=== PATIENT | female | born 1960 | race Caucasian/White ===

== ENCOUNTER 2017-02-18 11:42 | Emergency (ER) | payer OTHER ==
[2017-02-18] MEDS ORDERED: Sodium Chloride 0.9% 1000 ML 1,000 ML IV STA (12:08)
[2017-02-18] MEDS ORDERED: Vistaril 50 MG/ML IM ONE ×2 (12:08→12:30)
--- NOTE | 2017-02-18 12:22 | ERPHSYRPT ---
- History of Present Illness Time Seen by Provider: 02/18/17 11:53 Source: patient, family () Patient Subjective Stated Complaint: pt arrived per pov for dizziness, nausea, ear pain sudden onset, no vomiting, dizzy when moves around, pt is sitting in bed lauren soni the news Triage Nursing Assessment: pt alert, resp easy, skin w/d,no edema noted, moves all ext well Physician History: CC: dizzy Hx: 57 y/o patient went to the doctor with her , ran some errands, was going to [employer] to sign some papers. She had feeling of dizziness and nausea. Some neck pain but no headache. Tingle in left arm sometimes. No fall or injury. No jarett spinning. She came to have her sugar checked as she is a diabetic. No vomiting. No fever or chills. Timing/Duration: today Allergies/Adverse Reactions: Penicillins Allergy (Mild, Verified 02/18/17 12:06) Hives Home Medications: Alprazolam 1 mg [Xanax 1 mg] 1 mg PO TID 09/10/14 [History] Glyburide 5 mg [Micronase 5 MG] 10 mg PO BID 09/10/14 [History] Hydrocodone/APAP 5/325 [[place] 5/325 mg] 1 tab PO QID 09/10/14 [History] Insulin Lispro [Humalog] 10 units SQ ACHS 09/10/14 [History] Metformin HCl 500 mg [Glucophage 500 MG] 1,000 mg PO BID 09/10/14 [History ] Aspirin 81 gm Chew [Baby Aspirin 81 mg Chew] 81 mg PO DAILY 09/13/14 [ History] Metoprolol Tartrate 25 mg [Lopressor 25MG Tab] 25 mg PO BID 09/13/14 [ History] Prasugrel HCl [Effient] 10 mg PO DAILY 09/13/14 [History] Ramipril 5 mg [Altace 5 MG] 5 mg PO DAILY 09/13/14 [History] Hx Tetanus, Diphtheria Vaccination/Date Given: Yes Hx Influenza Vaccination/Date Given: Yes Hx Pneumococcal Vaccination/Date Given: Yes Immunizations Up to Date: Yes - Review of Systems Constitutional: Malaise, No Fever, No Chills Eyes: No Symptoms Ears, Nose, & Throat: No Symptoms Respiratory: No Cough Cardiac: No Chest Pain Abdominal/Gastrointestinal: No Abdominal Pain Musculoskeletal: Neck Pain, No Back Pain Skin: No Rash Neurological: Dizziness, No Focal Weakness, No Headache All Other Systems: Reviewed and Negative - Past Medical History Pertinent Past Medical History: Yes Neurological History: No Pertinent History ENT History: No Pertinent History Cardiac History: Coronary Artery Disease, Hypertension Respiratory History: No Pertinent History Endocrine Medical History: Diabetes Type II Musculoskeletal History: Other GI Medical History: No Pertinent History History: No Pertinent History Psycho-Social History: Anxiety, Depression Female Reproductive Disorders: No Pertinent History Other Medical History: SCIATIC NERVE PAIN - Past Surgical History Past Surgical History: Yes Neuro Surgical History: No Pertinent History Cardiac: Cardiac Stent Respiratory: No Pertinent History Gastrointestinal: Hernia Repair Musculoskeletal: No Pertinent History Female Surgical History: Section, Hysterectomy - Social History Smoking Status: Never smoker Exposure to second hand smoke: Yes Drug Use: none Patient Lives Alone: No - Female History Hx Last Menstrual Period: post - Nursing Vital Signs Nursing Vital Signs: Initial Vital Signs Temperature 97.5 F Temperature Source Oral Pulse Rate 84 Respiratory Rate 16 Blood Pressure [Right Arm] 126/64 Pain Intensity 6 - Physical Exam General Appearance: alert Eye Exam: PERRL/EOMI, other (no nystagmus) Ears, Nose, Throat Exam: normal ENT inspection, moist mucous membranes Neck Exam: normal inspection, supple Respiratory Exam: normal breath sounds, lungs clear Cardiovascular Exam: regular rate/rhythm Gastrointestinal/Abdomen Exam: soft, No tenderness, No distention Back Exam: normal inspection, normal range of motion Extremity Exam: normal inspection, normal range of motion Neurologic Exam: alert, oriented x 3, cooperative, 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 tested, sensation nml, No motor deficits Skin Exam: warm, dry, No rash SpO2 Interpretation: normal SpO2: 99 Oxygen Delivery: Room Air - Course Nursing assessment & vital signs reviewed: Yes EKG Interpreted by Me: RATE (63), Sinus Rhythm, NORMAL AXIS, NORMAL INTERVALS ( [id number]), NORMAL QRS, NORMAL ST-T Ordered Tests: Active Orders 24 hr Category Date Time Status Accucheck STAT Care 02/18/17 13:23 Active EKG-ER Only STAT Care 02/18/17 12:08 Active IV Insertion STAT Care 02/18/17 12:08 Active Orthostatic Vital Signs STAT Care 02/18/17 12:08 Active 1800 Calorie ADA Diet 02/18/17 Lunch Active CBC W DIFF Stat Lab 02/18/17 12:18 Completed CMP Stat Lab 02/18/17 12:18 Completed UA W/ MICROSCOPIC Stat Lab 02/18/17 12:30 Completed Medication Summary Discontinued Medications Generic Name Dose Route Start Last Admin Trade Name Freq PRN Reason Stop Dose Admin Hydroxyzine HCl 50 mg 02/18/17 12:08 02/18/17 12:34 Vistaril 50 Mg/Ml IM 02/18/17 12:09 50 mg STAT ONE Administration Hydroxyzine HCl Confirm 02/18/17 12:30 Vistaril 50 Mg/Ml Administered 02/18/17 12:31 Dose 50 mg IM .STK-MED ONE Sodium Chloride 1,000 mls @ 999 mls/hr 02/18/17 12:08 02/18/17 12:34 Sodium Chloride 0.9% 1000 Ml IV 02/18/17 13:08 999 mls/hr .Q1H1M STA Administration Sodium Chloride Confirm 02/18/17 12:30 Sodium Chloride 0.9% 1000 Ml Administered 02/18/17 12:31 Dose 1,000 mls @ ud .ROUTE .STK-MED ONE Lab/Rad Data: Laboratory Result Diagrams 02/18/17 12:18 02/18/17 12:18 Laboratory Results 02/18/17 02/18/17 02/18/17 Range/Units 12:30 12:18 12:18 WBC 8.9 (4.0-10.5) K/mm3 RBC 5.33 (4.1-5.4) M/mm3 Hgb 14.6 (12.0-16.0) gm/dl Hct 45.7 (35-47) % MCV 85.7 (78-100) fl MCH 27.4 (26-32) pg MCHC 31.9 L (32-36) g/dl RDW 14.1 H (11.5-14.0) % Plt Count 238 (150-450) K/mm3 MPV 11.1 H (6-9.5) fl Gran % 52.6 (36.0-66.0) % Lymphocytes % 37.1 (24.0-44.0) % Monocytes % 6.0 (0.0-12.0) % Eosinophils % 4.2 (0.00-5.0) % Basophils % 0.1 (0.0-0.4) % Basophils # 0.01 (0-0.4) Sodium 148 H (136-145) mEq/L Potassium 4.1 (3.5-5.1) mEq/L Chloride 109 H (98-107) mEq/L Carbon Dioxide 25.5 (21-32) mEq/L Anion Gap 17.9 H (5-15) MEQ/L BUN 11 (9-20) mg/dL Creatinine 0.77 (0.55-1.30) mg/dl Estimated GFR > 60 ML/MIN Glucose 58 L (70-110) MG/DL Calcium 9.3 (8.5-10.1) mg/dL Total Bilirubin 0.5 (0.2-1.0) mg/dL AST 19 (15-37) U/L ALT 19 (12-78) U/L Alkaline Phosphatase 96 (46-116) U/L Serum Total Protein 8.3 H (6.4-8.2) gm/dL Albumin 4.3 (3.4-5.0) g/dL Ur Collection Type VOID Urine Color YELLOW (YELLOW) Urine Appearance CLEAR (CLEAR) Urine pH 5.0 (5-6) Ur Specific [place] 1.020 (1.005-1.025) Urine Protein NEGATIVE (Negative) Urine Glucose (UA) NEGATIVE (NEGATIVE) mg/dL Urine Ketones NEGATIVE (NEGATIVE) Urine Nitrite NEGATIVE (NEGATIVE) Urine Bilirubin NEGATIVE (NEGATIVE) Urine Urobilinogen 0.2 (0-1) mg/dL Urine WBC (Auto) TRACE (NEGATIVE) Urine RBC (Auto) NEGATIVE (0-5) [place]/ul Urine Microscopic RBC 0-2 (0-2) /HPF Urine Microscopic WBC 0-2 (0-5) /HPF Ur Epithelial Cells FEW (FEW) /HPF Urine Bacteria RARE (NEGATIVE) /HPF Urine Mucus SLIGHT (NEGATIVE) /HPF Specimen Received 02/22/17 1230 - Progress Progress Note: 02/18/17 13:51 She is stable. Sugar low. She ate meal tray. Glc better. Orthostatics better. Will release with instructions. Counseled pt/family regarding: diagnosis, need for follow-up - Departure Time of Disposition: 13:51 Departure Disposition: Home Clinical Impression: Dizziness, Hypoglycemia Condition: Stable Critical Care Time: No Referrals: LEWSI NOVOA [Primary Care Provider] - Instructions: Vertigo Additional Instructions: Eat regular meals. Watch your sugar. No driving tonite. Follow up with Dr Novoa.
[2017-02-18 12:24] LABS: BASOPHIL % 0.1 % (0.0-0.4); Eosinophil % 4.2 % (0.00-5.0); Granulocytes % 52.6 % (36.0-66.0); Lymphocytes % 37.1 % (24.0-44.0); Mean Cell Volume 85.7 fl (78-100); Mean Corpuscular Hemoglobin 27.4 pg (26-32); Mean Platelet Volume 11.1 fl (6-9.5); Platelet Count 238 K/mm3 (150-450); Red Blood Count 5.33 M/mm3 (4.1-5.4); Red Cell Distribution Width 14.1 % (11.5-14.0); White Blood Count 8.9 K/mm3 (4.0-10.5)
[2017-02-18] MEDS ORDERED: Sodium Chloride 0.9% 1000 ML 1,000 ML ONE (12:30)
[2017-02-18 12:44] LABS: Collection Type VOID
[2017-02-18 12:45] LABS: ALBUMIN 4.3 g/dL (3.4-5.0); ALKALINE PHOSPHATASE 96 U/L (46-116); ANION GAP 17.9 MEQ/L (5-15); BILIRUBIN,TOTAL 0.5 mg/dL (0.2-1.0); BLOOD UREA NITROGEN 11 mg/dL (9-20); CHLORIDE 109 mEq/L (98-107); Carbon Dioxide 25.5 mEq/L (21-32); Glucose 58 MG/DL (70-110); Potassium 4.1 mEq/L (3.5-5.1); SGOT/AST 19 U/L (15-37); SGPT/ALT 19 U/L (12-78); SODIUM 148 mEq/L (136-145); Total Protein 8.3 gm/dL (6.4-8.2)
[2017-02-18 12:45] LABS: COMPLETE URINE MICROSCOPIC? YES
[2017-02-18 13:02] LABS: Bacteria RARE /HPF (NEGATIVE); Epithelial Cells FEW /HPF (FEW); Mucus SLIGHT /HPF (NEGATIVE); WBC 0-2 /HPF (0-5)
[2017-02-18 13:59] VITALS: BP 125/58; PULSE 67; O2SAT 98
== END 2017-02-18 14:05 | disposition home or self-care (01) ==
LOC: ED 11:42
DX: R42 Dizziness and giddiness (principal); H92.09 Otalgia, unspecified ear; R11.0 Nausea; E11.649 Type 2 diabetes mellitus with hypoglycemia without coma; Z79.84 Long term (current) use of oral hypoglycemic drugs; Z79.4 Long term (current) use of insulin; Z79.899 Other long term (current) drug therapy
CPT/HCPCS: 36000; 36415; 80053; 81000; 82962; 85025; 93005; 96360; 96372; 99284; J3410

== ENCOUNTER 2017-03-28 20:14 | Emergency (ER) | payer OTHER ==
[2017-03-28] MEDS ORDERED: Norflex 60 MG/2 ML IM ONE (20:26)
[2017-03-28 20:27] VITALS: BP 149/86; PULSE 80; O2SAT 97
[2017-03-28] MEDS ORDERED: Norflex 60 MG/2 ML ONE (20:49)
--- NOTE | 2017-03-28 21:18 | ERPHSYRPT ---
- History of Present Illness Time Seen by Provider: 03/28/17 20:16 Source: patient Patient Subjective Stated Complaint: pt is co left arm burning for 3 hours no chest pain Triage Nursing Assessment: pt is awake and alert and able to answer questions Physician History: CC: left arm burning hx: 57 y/o patient of Dr Novoa. She was playing on her phone this afternoon and at about 5PM she noted burning in her left arm. She has hx of spinal stenosis and sees Dr Montague. She is scheduled to start a new medication soon. No injury. No weakness. No chest pain. This is not similar to her prior heart condition. She is diabetic. Pain not worse with movement of the neck or arm. Pain is in upper arm in discreet segment and described as a burning sensation. Timing/Duration: today (5PM) Severity: moderate Allergies/Adverse Reactions: Penicillins Allergy (Mild, Verified 03/28/17 20:31) Hives Home Medications: Alprazolam 1 mg [Xanax 1 mg] 1 mg PO TID 09/10/14 [History] Glyburide 5 mg [Micronase 5 MG] 10 mg PO BID 09/10/14 [History] Hydrocodone/APAP 5/325 [[place] 5/325 mg] 1 tab PO QID 09/10/14 [History] Insulin Lispro [Humalog] 10 units SQ ACHS 09/10/14 [History] Metformin HCl 500 mg [Glucophage 500 MG] 1,000 mg PO BID 09/10/14 [History ] Aspirin 81 gm Chew [Baby Aspirin 81 mg Chew] 81 mg PO DAILY 09/13/14 [ History] Metoprolol Tartrate 25 mg [Lopressor 25MG Tab] 25 mg PO BID 09/13/14 [ History] Ramipril 5 mg [Altace 5 MG] 5 mg PO DAILY 09/13/14 [History] Atorvastatin Calcium [Lipitor] 0 mg DAILY 03/28/17 [History] Hx Tetanus, Diphtheria Vaccination/Date Given: Yes Hx Influenza Vaccination/Date Given: Yes Hx Pneumococcal Vaccination/Date Given: Yes - Review of Systems Constitutional: No Fever, No Chills Eyes: No Symptoms Ears, Nose, & Throat: No Symptoms Respiratory: No Cough Cardiac: No Chest Pain, No Edema, No Palpitations, No Syncope Abdominal/Gastrointestinal: No Abdominal Pain, No Nausea, No Vomiting Genitourinary Symptoms: No Symptoms Musculoskeletal: Neck Pain (chronic), No Back Pain, No Injury Neurological: Other (burning sensation in left arm), No Focal Weakness, No Parasthesia All Other Systems: Reviewed and Negative - Past Medical History Pertinent Past Medical History: Yes Neurological History: No Pertinent History ENT History: No Pertinent History Cardiac History: Coronary Artery Disease, Hypertension Respiratory History: No Pertinent History Endocrine Medical History: Diabetes Type II Musculoskeletal History: Other GI Medical History: No Pertinent History History: No Pertinent History Psycho-Social History: Anxiety, Depression Female Reproductive Disorders: No Pertinent History Other Medical History: SCIATIC NERVE PAIN. Cervical stenosis - Past Surgical History Past Surgical History: Yes Neuro Surgical History: No Pertinent History Cardiac: Cardiac Stent Respiratory: No Pertinent History Gastrointestinal: Hernia Repair Musculoskeletal: No Pertinent History Female Surgical History: Section, Hysterectomy - Social History Smoking Status: Never smoker Exposure to second hand smoke: Yes Drug Use: none Patient Lives Alone: No (, lives in a tiny house with and grand- daughter) - Female History Hx Last Menstrual Period: na - Nursing Vital Signs Nursing Vital Signs: Initial Vital Signs Temperature 98 F Temperature Source Oral Pulse Rate 80 Respiratory Rate 16 Blood Pressure [Right Arm] 149/86 Pain Intensity 4 - Physical Exam General Appearance: alert, other (pleasant lady) Eye Exam: PERRL/EOMI Ears, Nose, Throat Exam: normal ENT inspection, moist mucous membranes Neck Exam: normal inspection, non-tender, supple Respiratory Exam: normal breath sounds, lungs clear Cardiovascular Exam: regular rate/rhythm Gastrointestinal/Abdomen Exam: soft, No tenderness, No distention Extremity Exam: normal inspection, normal range of motion Neurologic Exam: alert, oriented x 3, 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, 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, sensation nml, No motor deficits Skin Exam: warm, dry, No rash SpO2 Interpretation: normal SpO2: 97 Oxygen Delivery: Room Air - Course Nursing assessment & vital signs reviewed: Yes EKG Interpreted by Me: RATE (64), Sinus Rhythm, NORMAL AXIS, NORMAL INTERVALS ( QTc 422), NORMAL QRS, NORMAL ST-T Ordered Tests: Active Orders 24 hr Category Date Time Status ACCUCHECK [Accucheck] STAT Care 03/28/17 21:56 Active EKG-ER Only STAT Care 03/28/17 20:23 Active CERVICAL SPINE MINIMUM 4 VIEWS Stat Exams 03/28/17 20:25 Taken Medication Summary Discontinued Medications Generic Name Dose Route Start Last Admin Trade Name Justin PRN Reason Stop Dose Admin Orphenadrine Citrate 60 mg 03/28/17 20:26 03/28/17 21:15 Norflex 60 Mg/2 Ml IM 03/28/17 20:27 60 mg STAT ONE Administration Orphenadrine Citrate Confirm 03/28/17 20:49 Norflex 60 Mg/2 Ml Administered 03/28/17 20:50 Dose 60 mg .ROUTE .STK-MED ONE - Progress Progress Note: 03/28/17 21:18 She has normal eKG and no chest pain to suggest cardiac etiology. This burning is likely related to her cervical stenosis. She plans follow up with Dr Montague. 03/28/17 22:02 Cervical spine xray: [email or web address] 9:41 PM 03/28/2017: No comps. Agree multilevel DDD further detailed MRI 01/08/16. Negative fx/ subluxation including dens. She feels better. She was medicated. Nothing to suggest ACS. She plans follow up with Dr Montague. She has norco at home for pain. Declines muscle relaxers as she has to care for . Advised no driving tonite. Counseled pt/family regarding: diagnosis, need for follow-up, rad results - Departure Time of Disposition: 22:03 Departure Disposition: Home Clinical Impression: Neuropraxia of left upper extremity, Cervical spinal stenosis Condition: Stable Critical Care Time: No Referrals: LEWIS NOVOA [Primary Care Provider] - TONY MONTAGUE I [NON-STAFF PHY W/O PRIVILEGES] - Instructions: Neck Pain Additional Instructions: No driving tonite. Take your medications as already prescribed. Follow up with Dr Montague this week. Return for problems or concerns.
--- NOTE | 2017-03-29 08:36 | XRAY ---
Indication: Left arm burning sensation. Spinal stenosis. Comparison: None 6 projections of the cervical spine demonstrates normal alignment with mild multilevel degenerative changes including mild bilateral C4-C5 foraminal narrowing. No acute fracture, subluxation, or prevertebral soft tissue swelling. Scattered bilateral carotid calcifications. Impression: Nonacute cervical spine with chronic features.
== END 2017-03-28 22:28 | disposition home or self-care (01) ==
LOC: ED 20:14
DX: S44.92XA Injury of unspecified nerve at shoulder and upper arm level, left arm, initial encounter (principal); M48.02 Spinal stenosis, cervical region; M79.622 Pain in left upper arm; M50.90 Cervical disc disorder, unspecified, unspecified cervical region; E11.9 Type 2 diabetes mellitus without complications; Z79.4 Long term (current) use of insulin; I10 Essential (primary) hypertension; I25.10 Atherosclerotic heart disease of native coronary artery without angina pectoris; F41.8 Other specified anxiety disorders; Z79.899 Other long term (current) drug therapy
CPT/HCPCS: 72050; 82962; 96372; 99284; J2360

== ENCOUNTER 2017-05-02 23:00 | Emergency (ER) | payer OTHER ==
[2017-05-02] MEDS ORDERED: Sodium Chloride 0.9% 1000 ML 1,000 ML IV SCH (23:45)
[2017-05-02] MEDS ORDERED: Zofran 4 MG/2 ML VIAL IV ONE (23:54)
[2017-05-02] MEDS ORDERED: GI COCKTAIL 60ML (Belladonn/Phenobarb/Lidoc PO ONE (23:54)
[2017-05-02] MEDS ORDERED: PROTONIX 40 MG IV IV ONE (23:54)
[2017-05-02] MEDS ORDERED: Nitrostat 0.4 MG (ED) SL ONE (23:57)
[2017-05-02] MEDS ORDERED: BABY ASPIRIN 81 MG CHEW PO ONE (23:57)
--- NOTE | 2017-05-03 00:07 | ERPHSYRPT ---
- History of Present Illness Time Seen by Provider: 05/02/17 23:50 Historian: patient Exam Limitations: clinical condition Patient Subjective Stated Complaint: Pt states she has had burning in the upper abdomen for about 1 week. She saw Josemanuel CAR TRACER for it and had a ct of abdomen that was negative. She was prescribed prilosec. She states the pain/burning only happens at night and she belches a lot. Triage Nursing Assessment: Pt alert and oriented x3. skin pink warm and dry. afebrile. abdomen soft and tender with palpation. bowel sounds present x4 Physician History: PATIENT COMPLAINS OF EPIGASTRIC PAIN DISCOMFORT ASSOCIATED WITH REFLUX INTO CHEST. HAS BURNING DISCOMFORT IN CHEST. DENIES DYSPNEA, DIAPHORESIS, OR PALPITATIONS. DENIES NAUSEA, EMESIS OR DIARRHEA. Timing/Duration: week(s) Activities at Onset: none Quality: burning Location: substernal, epigastric Chest Pain Radiation: no radiation Severity of Pain-Max: moderate Severity of Pain-Current: moderate Modifying Factors: Improves With: eating Associated Symptoms: denies symptoms Prior Chest Pain/Cardiac Workup: cardiac cath Nitro Today/Relief: 0.4 mg x 1 Aspirin Treatment Today: 81 mg x 4 Allergies/Adverse Reactions: Penicillins Allergy (Mild, Verified 05/02/17 23:13) Hives Home Medications: Alprazolam 1 mg [Xanax 1 mg] 1 mg PO TID PRN 09/10/14 [History] Glyburide 5 mg [Micronase 5 MG] 10 mg PO BID 09/10/14 [History] Insulin Lispro [Humalog] 10 units SQ DAILY 09/10/14 [History] Metformin HCl 500 mg [Glucophage 500 MG] 1,000 mg PO BID 09/10/14 [History ] Aspirin 81 gm Chew [Baby Aspirin 81 mg Chew] 81 mg PO DAILY 09/13/14 [ History] Metoprolol Tartrate 25 mg [Lopressor 25MG Tab] 12.5 mg PO BID 09/13/14 [ History] Ramipril 5 mg [Altace 5 MG] 5 mg PO DAILY 09/13/14 [History] Atorvastatin Calcium [Lipitor] 10 mg PO DAILY 03/28/17 [History] Omeprazole 20 MG [Prilosec 20 mg] 20 mg PO DAILY 05/02/17 [History] Hx Tetanus, Diphtheria Vaccination/Date Given: Yes Hx Influenza Vaccination/Date Given: Yes Hx Pneumococcal Vaccination/Date Given: Yes - Review of Systems Constitutional: No Fever, No Chills Eyes: No Symptoms Ears, Nose, & Throat: No Symptoms Respiratory: No Symptoms, No Cough, No Dyspnea Cardiac: No Chest Pain, No Edema, No Syncope Abdominal/Gastrointestinal: Abdominal Pain, No Nausea, No Vomiting, No Diarrhea Genitourinary Symptoms: No Symptoms, No Dysuria Musculoskeletal: No Symptoms, No Back Pain, No Neck Pain Skin: No Symptoms, No Rash Neurological: No Symptoms, No Dizziness, No Focal Weakness, No Sensory Changes Psychological: No Symptoms Endocrine: No Symptoms All Other Systems: Reviewed and Negative - Past Medical History Pertinent Past Medical History: Yes Neurological History: No Pertinent History ENT History: No Pertinent History Cardiac History: Coronary Artery Disease, Hypertension Respiratory History: No Pertinent History Endocrine Medical History: Diabetes Type II Musculoskeletal History: Other GI Medical History: No Pertinent History History: No Pertinent History Psycho-Social History: Anxiety, Depression Female Reproductive Disorders: No Pertinent History Other Medical History: SCIATIC NERVE PAIN. Cervical stenosis - Past Surgical History Past Surgical History: Yes Neuro Surgical History: No Pertinent History Cardiac: Cardiac Stent Respiratory: No Pertinent History Gastrointestinal: Hernia Repair Musculoskeletal: No Pertinent History Female Surgical History: Section, Hysterectomy Other Surgical History: x3 - Social History Smoking Status: Never smoker Exposure to second hand smoke: Yes Drug Use: none Patient Lives Alone: No - Nursing Vital Signs Nursing Vital Signs: Initial Vital Signs Temperature 97.8 F Temperature Source Oral Pulse Rate 68 Respiratory Rate 16 Blood Pressure [] 98/52 Pain Intensity 8 - Physical Exam General Appearance: no apparent distress, alert Eye Exam: PERRL/EOMI, eyes nml inspection Ears, Nose, Throat Exam: normal ENT inspection, moist mucous membranes Neck Exam: normal inspection, non-tender, supple, full range of motion Respiratory Exam: normal breath sounds, lungs clear, No respiratory distress Cardiovascular Exam: regular rate/rhythm, normal heart sounds Gastrointestinal/Abdomen Exam: soft, normal bowel sounds, No tenderness ( MINIMAL EPIGASTRIC TENDERNESS), No mass Back Exam: normal inspection, No CVA tenderness, No vertebral tenderness Extremity Exam: normal inspection, normal range of motion Neurologic Exam: alert, oriented x 3, cooperative, normal mood/affect, sensation nml, No motor deficits Skin Exam: normal color, warm, dry SpO2 Interpretation: normal SpO2: 97 Oxygen Delivery: Room Air - Course EKG Interpreted by Me: RATE, Sinus Rhythm, NORMAL AXIS - Radiology Exams Chest X-ray Interpretation: Interpreted by me, Negative Ordered Tests: Active Orders 24 hr Category Date Time Status EKG-ER Only STAT Care 05/02/17 23:54 Active IV Insertion STAT Care 05/02/17 23:54 Active CHEST 1 VIEW (PORTABLE) Stat Exams 05/02/17 23:55 Taken Medication Summary Generic Name Dose Route Start Last Admin Trade Name Freq PRN Reason Stop Dose Admin Sodium Chloride 1,000 mls @ 100 mls/hr 05/02/17 23:45 05/03/17 00:55 Sodium Chloride 0.9% 1000 Ml IV 06/01/17 23:44 100 mls/hr .Q10H REBECCA Administration Sodium Chloride 1,000 mls @ 999 mls/hr 05/03/17 01:37 05/03/17 01:47 Sodium Chloride 0.9% 1000 Ml IV 05/03/17 02:37 999 mls/hr .Q1H1M STA Administration Discontinued Medications Generic Name Dose Route Start Last Admin Trade Name Freq PRN Reason Stop Dose Admin Al Hydrox/Mg Hydrox/Simethicone Confirm 05/03/17 00:42 Maalox Es 30 Ml Unit Dose Administered 05/03/17 00:43 Dose 30 ml .ROUTE .STK-MED ONE Aspirin 324 mg 05/02/17 23:57 05/03/17 00:54 Baby Aspirin 81 Mg Chew PO 05/02/17 23:58 324 mg STAT ONE Administration Aspirin Confirm 05/03/17 00:41 Baby Aspirin 81 Mg Chew Administered 05/03/17 00:42 Dose 324 mg .ROUTE .STK-MED ONE Belladonna Alkaloids/Phenobarbital 60 ml 05/02/17 23:54 05/03/17 00:55 Gi Cocktail 60ml (Belladonn/Phenobarb/Lidoc* PO 05/02/17 23:55 60 ml STAT ONE Administration Belladonna Alkaloids/Phenobarbital Confirm 05/03/17 00:42 Donnatol Liquid Administered 05/03/17 00:43 Dose 64.8 mg .ROUTE .STK-MED ONE Hydromorphone HCl 1 mg 05/03/17 01:37 05/03/17 01:47 Hydromorphone 1 Mg/Ml Ampule IV 05/03/17 01:38 1 mg STAT ONE Administration Hydromorphone HCl Confirm 05/03/17 01:43 Hydromorphone 1 Mg/Ml Ampule Administered 05/03/17 01:44 Dose 1 mg .ROUTE .STK-MED ONE Lidocaine HCl Confirm 05/03/17 00:42 Xylocaine Hcl Viscous * Administered 05/03/17 00:43 Dose 20 ml .ROUTE .STK-MED ONE Nitroglycerin 0.4 mg 05/02/17 23:57 05/03/17 00:54 Nitrostat 0.4 Mg (Ed) SL 05/02/17 23:58 0.4 mg STAT ONE Administration Nitroglycerin Confirm 05/03/17 00:41 Nitrostat 0.4 Mg (Ed) Administered 05/03/17 00:42 Dose 0.4 mg SL .STK-MED ONE Ondansetron HCl 4 mg 05/02/17 23:54 05/03/17 00:55 Zofran 4 Mg/2 Ml Vial IV 05/02/17 23:55 4 mg STAT ONE Administration Ondansetron HCl Confirm 05/03/17 00:40 Zofran 4 Mg/2 Ml Vial Administered 05/03/17 00:41 Dose 4 mg .ROUTE .STK-MED ONE Pantoprazole Sodium 40 mg 05/02/17 23:54 05/03/17 00:54 Protonix 40 Mg Iv IV 05/02/17 23:55 40 mg STAT ONE Administration Pantoprazole Sodium Confirm 05/03/17 00:41 Protonix 40 Mg Iv Administered 05/03/17 00:42 Dose 40 mg IV .STK-MED ONE Lab/Rad Data: Laboratory Result Diagrams 05/02/17 00:30 05/02/17 00:30 Laboratory Results 05/02/17 05/02/17 05/02/17 Range/Units 01:09 00:30 00:30 WBC (4.0-10.5) K/mm3 RBC (4.1-5.4) M/mm3 Hgb (12.0-16.0) gm/dl Hct (35-47) % MCV (78-100) fl MCH (26-32) pg MCHC (32-36) g/dl RDW (11.5-14.0) % Plt Count (150-450) K/mm3 MPV (6-9.5) fl Gran % (36.0-66.0) % Lymphocytes % (24.0-44.0) % Monocytes % (0.0-12.0) % Eosinophils % (0.00-5.0) % Basophils % (0.0-0.4) % Basophils # (0-0.4) INR 0.95 (0.8-3.0) Sodium 142 (136-145) mEq/L Potassium 3.9 (3.5-5.1) mEq/L Chloride 106 (98-107) mEq/L Carbon Dioxide 25.5 (21-32) mEq/L Anion Gap 14.5 (5-15) MEQ/L BUN 14 (9-20) mg/dL Creatinine 0.80 (0.55-1.30) mg/dl Estimated GFR > 60 ML/MIN Glucose 150 H (70-110) MG/DL Calcium 9.5 (8.5-10.1) mg/dL Total Bilirubin 0.40 (0.2-1.0) mg/dL AST 17 (15-37) U/L ALT 12 (12-78) U/L Alkaline Phosphatase 89 (46-116) U/L Troponin I < 0.017 (0.000-0.056) ng/ml Serum Total Protein 7.0 (6.4-8.2) gm/dL Albumin 3.3 L (3.4-5.0) g/dL Amylase 141 H (25-115) U/L Lipase 987 H (73-393) U/L Ur Collection Type CLEAN CATCH Urine Color YELLOW (YELLOW) Urine Appearance CLEAR (CLEAR) Urine pH 5.0 (5-6) Ur Specific [place] 1.010 (1.005-1.025) Urine Protein NEGATIVE (Negative) Urine Glucose (UA) NEGATIVE (NEGATIVE) mg/dL Urine Ketones NEGATIVE (NEGATIVE) Urine Nitrite NEGATIVE (NEGATIVE) Urine Bilirubin NEGATIVE (NEGATIVE) Urine Urobilinogen 0.2 (0-1) mg/dL Urine WBC (Auto) NEGATIVE (NEGATIVE) Urine RBC (Auto) TRACE-INTACT (0-5) [place]/ul Urine Microscopic RBC 2-5 (0-2) /HPF Urine Microscopic WBC 5-10 (0-5) /HPF Ur Epithelial Cells MODERATE (FEW) /HPF Urine Bacteria FEW (NEGATIVE) /HPF Urine Mucus SLIGHT (NEGATIVE) /HPF Specimen Received 05/03/17 0110 05/02/17 Range/Units 00:30 WBC 8.8 (4.0-10.5) K/mm3 RBC 4.51 (4.1-5.4) M/mm3 Hgb 12.2 (12.0-16.0) gm/dl Hct 38.2 (35-47) % MCV 84.7 (78-100) fl MCH 27.1 (26-32) pg MCHC 31.9 L (32-36) g/dl RDW 13.6 (11.5-14.0) % Plt Count 233 (150-450) K/mm3 MPV 11.3 H (6-9.5) fl Gran % 52.5 (36.0-66.0) % Lymphocytes % 33.9 (24.0-44.0) % Monocytes % 7.5 (0.0-12.0) % Eosinophils % 5.9 H (0.00-5.0) % Basophils % 0.2 (0.0-0.4) % Basophils # 0.02 (0-0.4) INR (0.8-3.0) Sodium (136-145) mEq/L Potassium (3.5-5.1) mEq/L Chloride (98-107) mEq/L Carbon Dioxide (21-32) mEq/L Anion Gap (5-15) MEQ/L BUN (9-20) mg/dL Creatinine (0.55-1.30) mg/dl Estimated GFR ML/MIN Glucose (70-110) MG/DL Calcium (8.5-10.1) mg/dL Total Bilirubin (0.2-1.0) mg/dL AST (15-37) U/L ALT (12-78) U/L Alkaline Phosphatase (46-116) U/L Troponin I (0.000-0.056) ng/ml Serum Total Protein (6.4-8.2) gm/dL Albumin (3.4-5.0) g/dL Amylase (25-115) U/L Lipase (73-393) U/L Ur Collection Type Urine Color (YELLOW) Urine Appearance (CLEAR) Urine pH (5-6) Ur Specific [place] (1.005-1.025) Urine Protein (Negative) Urine Glucose (UA) (NEGATIVE) mg/dL Urine Ketones (NEGATIVE) Urine Nitrite (NEGATIVE) Urine Bilirubin (NEGATIVE) Urine Urobilinogen (0-1) mg/dL Urine WBC (Auto) (NEGATIVE) Urine RBC (Auto) (0-5) [place]/ul Urine Microscopic RBC (0-2) /HPF Urine Microscopic WBC (0-5) /HPF Ur Epithelial Cells (FEW) /HPF Urine Bacteria (NEGATIVE) /HPF Urine Mucus (NEGATIVE) /HPF Specimen Received - Progress Progress: improved Progress Note: 05/03/17 01:48 PATIENT GIVEN 4 BABY ASPIRIN, NTG 0.4MG SL X2, IV BOLUS 1 LITER OVER I HOUR, ZOFRAN 4MG, DILAUDID 1MG IV 05/03/17 01:50 PATIENT REFUSES ADMISSION AT 0150 Counseled pt/family regarding: lab results, diagnosis, need for follow-up, rad results - Departure Time of Disposition: 02:25 Departure Disposition: AMA Clinical Impression: ACUTE PANCREATITIS Condition: Stable Critical Care Time: No Referrals: LEWIS NOVOA [Primary Care Provider] - Additional Instructions: FOLLOWUP WITH YOUR PRIMARY CARE PHYSICIAN FOR EVALUATION AND TREATMENT. RETURN TO EMERGENCY FOR WORSENING PAIN. NORCO 5/325 EVERY 4 HOUR FOR PAIN NEEDED. ZOFRAN 4MG EVERY 4 HOUR FOR NAUSEA. Prescriptions: Hydrocodone/APAP 10/325 mg [Erhard 10/325 MG Tablet] 1 tab PO Q4H PRN PRN # 15 tablet PRN Reason: Pain
[2017-05-03 00:36] LABS: BASOPHIL % 0.2 % (0.0-0.4); Eosinophil % 5.9 % (0.00-5.0); Granulocytes % 52.5 % (36.0-66.0); Lymphocytes % 33.9 % (24.0-44.0); Mean Cell Volume 84.7 fl (78-100); Mean Corpuscular Hemoglobin 27.1 pg (26-32); Mean Platelet Volume 11.3 fl (6-9.5); Monocytes % 7.5 % (0.0-12.0); Platelet Count 233 K/mm3 (150-450); Red Blood Count 4.51 M/mm3 (4.1-5.4); Red Cell Distribution Width 13.6 % (11.5-14.0); White Blood Count 8.8 K/mm3 (4.0-10.5)
[2017-05-03] MEDS ORDERED: Zofran 4 MG/2 ML VIAL ONE (00:40)
[2017-05-03] MEDS ORDERED: Nitrostat 0.4 MG (ED) SL ONE (00:41)
[2017-05-03] MEDS ORDERED: PROTONIX 40 MG IV IV ONE (00:41)
[2017-05-03] MEDS ORDERED: BABY ASPIRIN 81 MG CHEW ONE (00:41)
[2017-05-03] MEDS ORDERED: Sodium Chloride 0.9% 1000 ML 1,000 ML ONE (00:42)
[2017-05-03] MEDS ORDERED: MAALOX ES 30 ML UNIT DOSE ONE (00:42)
[2017-05-03] MEDS ORDERED: Donnatol Liquid ONE (00:42)
[2017-05-03] MEDS ORDERED: XYLOCAINE HCl Viscous ONE (00:42)
[2017-05-03 01:01] LABS: ALBUMIN 3.3 g/dL (3.4-5.0); ALKALINE PHOSPHATASE 89 U/L (46-116); ANION GAP 14.5 MEQ/L (5-15); BLOOD UREA NITROGEN 14 mg/dL (9-20); CHLORIDE 106 mEq/L (98-107); Carbon Dioxide 25.5 mEq/L (21-32); Glucose 150 MG/DL (70-110); LIPASE 987 U/L (73-393); Potassium 3.9 mEq/L (3.5-5.1); SGOT/AST 17 U/L (15-37); SODIUM 142 mEq/L (136-145)
[2017-05-03 01:05] LABS: INR 0.95 (0.8-3.0); PROTIME 10.7 SECONDS (9.95-12.35)
[2017-05-03 01:11] LABS: SGPT/ALT 12 U/L (12-78)
[2017-05-03 01:15] LABS: TROPONIN < 0.017 ng/ml (0.000-0.056)
[2017-05-03 01:20] LABS: Collection Type CLEAN CATCH
[2017-05-03 01:21] LABS: ADD URINE CULTURE? NO (NO); Bacteria FEW /HPF (NEGATIVE); COMPLETE URINE MICROSCOPIC? YES; Epithelial Cells MODERATE /HPF (FEW); Mucus SLIGHT /HPF (NEGATIVE)
[2017-05-03] MEDS ORDERED: Sodium Chloride 0.9% 1000 ML 1,000 ML IV STA (01:37)
[2017-05-03] MEDS ORDERED: Hydromorphone 1 mg/ml Ampule IV ONE (01:37)
[2017-05-03] MEDS ORDERED: Hydromorphone 1 mg/ml Ampule ONE (01:43)
[2017-05-03 02:42] VITALS: BP 112/69; PULSE 79; O2SAT 99
--- NOTE | 2017-05-03 08:59 | XRAY ---
Indication: Chest pain. Comparison: September 10, 2014. Portable chest better inflated today and remains clear again with a few incidental calcified granulomas. Heart is not enlarged. Bony thorax intact again with mild osteopenia and degenerative changes. Impression: Nonacute chest with chronic features.
== END 2017-05-03 02:44 | disposition left against medical advice (07) ==
LOC: ED 23:00
DX: K85.90 Acute pancreatitis without necrosis or infection, unspecified (principal); R14.2 Eructation; R10.13 Epigastric pain; R07.89 Other chest pain; I25.10 Atherosclerotic heart disease of native coronary artery without angina pectoris; I10 Essential (primary) hypertension; E11.9 Type 2 diabetes mellitus without complications; Z79.84 Long term (current) use of oral hypoglycemic drugs; Z79.4 Long term (current) use of insulin; Z79.899 Other long term (current) drug therapy
CPT/HCPCS: 36000; 36415; 71010; 80053; 81000; 82150; 83690; 84484; 85025; 85610; 93005; 96360; 96361; 96374; 96375; 99284; J1170; J2405; A9270-GY

== ENCOUNTER 2022-10-30 17:10 | Emergency (ER) | payer OTHER ==
[2022-10-30] MEDS ORDERED: XYLOCAINE 1% HCL 20 ML MDV IJ ONE (17:11)
--- NOTE | 2022-10-30 17:38 | ERPHSYRPT ---
- History of Present Illness Time Seen by Provider: 10/30/22 17:37 Source: patient Exam Limitations: no limitations Patient Subjective Stated Complaint: PT STATES INCREASED CONGESTION WITH THICK MUCUS. DIFFICULTY CLEARING SECREATIONS. REPORTS STERNUM IS TENDER TO TOUCH. Triage Nursing Assessment: PT ALERT AND ORIENTED, ABLE TO WALK TO ROOM AND PUT SELF IN BED. BREATHING NORMAL, NON LABORED. BREATHSOUNDS, WHEEZING DIMINISHED BILATERAL. ACTIVE BOWEL SOUNDS. Physician History: This is a 62-year-old white female patient of nurse practitioner Josemanuel who has had cough and congestion for at least 9 days. She was diagnosed with COVID-19 infection approximately 9 days ago. She presents with persistent cough and congestion. She has used Robitussin-DM per her report. She states that this medication has not helped much yet. 2 days ago, per patient report, she received a Kenalog injection of steroids. Patient does not have chest pain. She does not have shortness of breath. Patient has a history of insulin-depend ent diabetes, hyperlipidemia and hypertension. Patient is concerned because she is unable to cough up the phlegm. Timing/Duration: day(s) (Symptoms for at least 9 days) Cough Quality/Degree: mild Possible Cause: no prior episodes Modifying Factors: Improves With: coughing Associated Symptoms: cough, nasal congestion, wheezing, No chest pain/soreness, No shortness of breath Allergies/Adverse Reactions: Penicillins Allergy (Mild, Verified 12/05/18 15:32) Hives Home Medications: Glyburide 5 mg [Micronase 5 MG] 5 mg PO BID 09/10/14 [History] Metformin HCl 500 mg [Glucophage 500 MG] 1,000 mg PO BID 09/10/14 [History] Aspirin 81 gm Chew [Baby Aspirin 81 mg Chew] 81 mg PO DAILY 09/13/14 [History] Metoprolol Tartrate 25 mg [Lopressor 25MG Tab] 25 mg PO BID 09/13/14 [History] Ramipril 5 mg [Altace 5 MG] 5 mg PO DAILY 09/13/14 [History] Atorvastatin Calcium [Lipitor] 40 mg PO DAILY 03/28/17 [History] Clotrimazole 15 gm TP BID 12/05/18 [History] Fluticasone Propionate [Flonase Allergy Relief] 15.8 ml NS DAILY 12/05/18 [History] Insulin Glargine,Hum.rec.anlog [Basaglar Kwikpen U-100] 10 unit SQ DAILY 12/05/18 [History] Loratadine 10 mg [Claritin 10 mg] 10 mg PO DAILY 12/05/18 [History] Nystatin Powder 15 gm [Nystop Powder 15 gm] 100,000 gm TOP BID 12/05/18 [History] Tramadol HCl 50 mg [Ultram 50 mg] 50 mg PO BID 12/05/18 [History] Hx Tetanus, Diphtheria Vaccination/Date Given: Yes Hx Influenza Vaccination/Date Given: Yes Hx Pneumococcal Vaccination/Date Given: Yes Travel Risk - International Travel Have you traveled outside of the country in past 3 weeks: No - Coronavirus Screening Symptoms: Cough: New Onset, Shortness of Breath Close contact with a COVID-19 positive Pt in past 14-21 Days: Yes - Vaccine Status Have you recieved a Covid-19 vaccination: Yes Banquet Pilot: Unknown - Vaccination Dates Dates if Unknown: unk - Review of Systems Constitutional: No Symptoms Eyes: No Symptoms Ears, Nose, & Throat: No Symptoms Respiratory: Cough Cardiac: No Symptoms Abdominal/Gastrointestinal: No Symptoms Genitourinary Symptoms: No Symptoms Musculoskeletal: No Symptoms Skin: No Symptoms Neurological: No Symptoms Psychological: No Symptoms Endocrine: No Symptoms Hematologic/Lymphatic: No Symptoms Immunological/Allergic: No Symptoms All Other Systems: Reviewed and Negative - Past Medical History Pertinent Past Medical History: Yes Neurological History: Migraines ENT History: No Pertinent History Cardiac History: Hypertension, Myocardial Infarction ([place]) Respiratory History: No Pertinent History Endocrine Medical History: Diabetes Type II Musculoskeletal History: Osteoarthritis GI Medical History: No Pertinent History, GERD, Hepatitis History: No Pertinent History Psycho-Social History: Anxiety, Depression Female Reproductive Disorders: No Pertinent History Other Medical History: SCIATIC NERVE PAIN. Cervical stenosis. APPENDIX CANCER - Past Surgical History Past Surgical History: Yes Neuro Surgical History: No Pertinent History Cardiac: Cardiac Stent Respiratory: No Pertinent History Gastrointestinal: Appendectomy, Bowel Surgery, Hernia Repair Genitourinary: No Pertinent History Musculoskeletal: No Pertinent History Female Surgical History: Section, Hysterectomy Other Surgical History: x3. APPENDECTOMY, THEN PARTIAL COLLECTOMY. - Social History Smoking Status: Never smoker Exposure to second hand smoke: Yes Drug Use: none Patient Lives Alone: No - Nursing Vital Signs Nursing Vital Signs: Initial Vital Signs Pulse Rate 62 10/30/22 17:11 Respiratory Rate 18 10/30/22 17:11 Blood Pressure 160/88 10/30/22 17:11 O2 Sat by Pulse Oximetry 99 10/30/22 17:11 Pain Scale Pain Intensity 0 - Physical Exam General Appearance: no apparent distress, alert, anxiety Eye Exam: PERRL/EOMI, eyes nml inspection Ears, Nose, Throat Exam: normal ENT inspection, moist mucous membranes Neck Exam: normal inspection, non-tender, supple, full range of motion Respiratory Exam: normal breath sounds, lungs clear, airway intact, No chest tenderness, No respiratory distress Cardiovascular Exam: regular rate/rhythm, normal heart sounds, normal peripheral pulses Gastrointestinal/Abdomen Exam: soft, normal bowel sounds, No tenderness Pelvic Exam: not done Rectal Exam: not done Back Exam: normal inspection, normal range of motion, No CVA tenderness Extremity Exam: normal inspection Neurologic Exam: alert, oriented x 3, cooperative, 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 The half-life of that medication is approximately 146 hours. I will not be providing the patient with any further steroid treatment. 10/30/22 18:12 Chest x-ray shows a question of left costovertebral angle infiltrate versus fluid versus atelectasis. This is compared to chest x-ray performed on 01/29/2020. Patient's symptoms have been persistent over the last 9 days. We will treat her with antibiotics. Blood Culture(s) Obtained: No Antibiotics given: Yes Counseled pt/family regarding: diagnosis, need for follow-up, rad results - Departure Departure Disposition: Home Clinical Impression: Left pulmonary infiltrate on CXR Condition: Stable Critical Care Time: No Referrals: KIANNA LUNA SILVER BUFFER [Primary Care Provider] - Follow up/PCP as directed Additional Instructions: Drink plenty of warm fluid. Keep your throat moist. Gargle with salt water. Use normal saline nasal sprays. Avoid exposure to any kind of smoke. Take hot showers. Use [id number] Mucinex. Do not use your 's medication. Take your other medication as prescribed. Follow-up with your prescribing provider on 11/02/2022 for further evaluation and management. Prescriptions: Albuterol 8 gm Mdi Hfa [Ventolin Hfa MDI] 8 gm IH Q4H #1 unit Azithromycin 250 mg [Zithromax 250 MG TABLET] 250 mg PO ZPACK #6 tablet
[2022-10-30] MEDS ORDERED: Rocephin 1000 MG INJ IM ONE (18:20)
[2022-10-30] MEDS ORDERED: Rocephin 1000 MG INJ ONE (18:29)
[2022-10-30 18:37] VITALS: BP 122/52; PULSE 61; O2SAT 98
--- NOTE | 2022-10-30 18:47 | XRAY ---
Indication: Chest congestion 4 days. Comparison: January 29, 2020 Portable chest remains hyperinflated with stable lingula subsegmental atelectasis/scarring and tiny right midlung calcified granuloma. Remaining heart and lungs unremarkable. Bony thorax intact with osteopenia, degenerative changes, and dextroscoliosis. No new/acute findings.
== END 2022-10-30 18:53 | disposition home or self-care (01) ==
LOC: ED 17:10
DX: R91.8 Other nonspecific abnormal finding of lung field (principal); R05.2 Subacute cough; R09.81 Nasal congestion; E11.9 Type 2 diabetes mellitus without complications; E78.5 Hyperlipidemia, unspecified; I10 Essential (primary) hypertension; Z79.4 Long term (current) use of insulin; Z79.84 Long term (current) use of oral hypoglycemic drugs; Z79.899 Other long term (current) drug therapy
CPT/HCPCS: 71045; 96372; 99283; J0696